=== PATIENT | female | born 1975 | race Caucasian/White ===

== ENCOUNTER 2017-09-14 20:29 | Emergency (ER) | payer BC ==
[2017-09-14 20:58] VITALS: RESP 12; TEMP 98.2; O2SAT 100
[2017-09-14] MEDS ORDERED: IPRATROPIUM/ALBUTEROL 3 ML DEYVIAL IH ONE (21:28)
[2017-09-14 21:29] LABS: PLATELET COUNT 378 10^3/uL (150-400)
[2017-09-14 22:06] VITALS: BP 110/65; PULSE 46
--- NOTE | 2017-09-14 22:06 | EDPHY ---
H & P Time Seen by Provider: 09/14/17 20:51 HPI/ROS: This patient reports itching eyes, burning itching to her mucosal membranes, a feeling of mucus and tightness in her throat and a productive cough over the past week since moving into a rental home in the area having come from [place]. She noticed a correlation between the severity of her symptoms and time spent and a new home with prominent symptoms 1st night that she was there minute during the day while at work the symptoms diminish but again start worsening while she has a home peaking out in the morning prior to going to work. Concerned about potential mold exposure she had home inspection which did reveal some mold in the home. She got a hotel over the past 2 days with improvement in her symptoms and came in for evaluation of her lingering cough productive of sputum. ROS: No high fevers or chills. She does report some lethargy and fatigue which is unusual for her. No other constitutional symptoms. HEENT: Mild nasal congestion is more prominent when she is at home. None currently. She denies any significant sore throat. No ear pain. Pulmonary: No pleuritic pain. No respiratory distress. No hemoptysis. Cardiovascular: She denies any significant lightheadedness. No chest pain. GI: No acute symptoms. : No complaints integumentary: Again burning to her mucosal membranes to her mouth and lips but no other symptoms and no rash. 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 Otherwise healthy Smoking Status: Never smoked Physical Exam: Vital signs are normal General Appearance: Pleasant 41-year-old female Alert, no distress. Eyes: Pupils equal and round no pallor or injection. ENT, Mouth: Mucous membranes moist. No angioedema is appreciated. No stridor. No significant posterior pharyngeal erythema. Ears: Clear bilaterally Respiratory: Clear to auscultation with exception of a faint wheeze only when she coughs. No rales or rhonchi. Cardiovascular: Regular rate and rhythm. No murmur gallop or rub Gastrointestinal: Abdomen is soft and nontender, no masses, bowel sounds normal. Neurological: GCS of 15 Skin: Warm and dry, no rashes. Musculoskeletal: Neck is supple nontender. Extremities are symmetrical, full range of motion. Psychiatric: Mood and affect are normal DIFFERENTIAL DIAGNOSIS: After history and physical exam differential diagnosis was considered for potential symptoms from mold exposure, environmental allergies, viral URI Constitutional: Initial Vital Signs Temperature (C) 36.8 C 09/14/17 20:52 Heart Rate 54 L 09/14/17 20:52 Respiratory Rate 12 09/14/17 20:52 Blood Pressure 119/90 H 09/14/17 20:52 O2 Sat (%) 100 09/14/17 20:52 O2 Delivery Mode Room Air Allergies/Adverse Reactions: No Known Allergies Allergy (Unverified 09/14/17 20:51) Home Medications: Medication Instructions Recorded Albuterol Hfa Anes Only [Proair 2 puffs IH Q4 PRN #1 mdi 09/14/17 Hfa Icu (*)] Control Pill 09/14/17 Fluticasone Hfa 220 Mcg [Flovent 2 puffs IH DAILY #1 mdi 09/14/17 220 MCG Hfa MDI (*)] MDM/Departure - MDM Medications Given: Discontinued Medications Albuterol/Ipratropium (Duoneb) 3 ml IH EDNOW ONE Stop: 09/14/17 21:29 Last Admin: 09/14/17 21:52 Dose: 3 ml ED Course/Re-evaluation: Peak flows checked and is mildly low at 420s with predicted 469 After DuoNeb patient had some improvement to 450. Blood draw with CBC revealed normal total white count but prominence of lymphocytes in basophils. Discussion: Patient with symptoms that may be attributable to mold exposure. No clinical evidence of suggest lower respiratory infection, sepsis, anaphylaxis. She may have a mild element of reactive airway disease given some improvement with DuoNeb Will recommend that she stay away from the home for the now and use the albuterol inhaler plus Flovent steroid inhaler for improvement while documenting or peak flows. Recommended follow up primary care physician. She will return for any significant worsening despite the treatment plan. - Depart Disposition: Home, Routine, Self-Care Clinical Impression: Cough, Mold exposure Condition: Good Additional Instructions: Diagnosis: 1. Cough 2. Exposure to mold Plan: Consider humidifier Albuterol inhaler with spacer for cough, wheeze or shortness of breath Consider Flovent steroid inhaler to diminish mucous. Follow up with primary care physician-number provided Return for any significant worsening despite treatment plan Prescriptions: Albuterol Hfa Anes Only [Proair Hfa Icu (*)] 2 puffs IH Q4 PRN #1 mdi PRN Reason: Wheezing Fluticasone Hfa 220 Mcg [Flovent 220 MCG Hfa MDI (*)] 2 puffs IH DAILY #1 mdi Referrals: NONE *PRIMARY CARE P,. [Primary Care Provider] - As per Instructions Janett Lainez MD [Medical Doctor] - As per Instructions
== END 2017-09-14 22:24 | disposition home or self-care (01) ==
LOC: CED 20:29
DX: R05 Cough (principal); Z77.120 Contact with and (suspected) exposure to mold (toxic)
CPT/HCPCS: 85025-PO

== ENCOUNTER 2017-10-26 09:47 | Emergency (ER) | payer BC ==
[2017-10-26] MEDS ORDERED: NS 1,000 ML IV ONE (10:04)
--- NOTE | 2017-10-26 10:44 | EDPHY ---
H & P Stated Complaint: Dx with Flu B on - cont s/s is worried she is not geting better Time Seen by Provider: 10/26/17 10:04 HPI/ROS: This patient presents with complaints of fatigue on ongoing cough with recent diagnosis of influenza B on 10/22/2017. She noticed onset of symptoms that day with fevers, lightheadedness, cough and nasal congestion. She had a rapid flu swab at the urgent care positive for flu B at that time was started on Tamiflu. She reports compliance with Tamiflu and completed that course today. She reports significant ongoing fatigue and this morning lightheadedness when she was trying to prepare herself to go to work. She also reports some ongoing subjective lower grade fevers. She reports the frequency intensity of her cough is improved but does persist. She had no albuterol inhaler left from a prior bronchitis visit that she used with partial relief of her coughing and sense of dyspnea last night. Due to her ongoing symptoms and feeling of lightheadedness she came in for evaluation. She is concerned that she may have dehydration attributable to anorexia and nausea. She has had minimal food intake for the past 4 days but reports ability to tolerate some fluids. ROS: Constitutional: As per HPI HEENT: She reports no sore throat at this point. No ear pain. No sinus pain. No other complaints Pulmonary: Cough occasionally productive of sputum. No hemoptysis. No respiratory distress. No pleuritic pain. Cardiovascular: Lightheadedness. No chest pain. No heart palpitations. No lower extremity swelling. GI: As per HPI. No abdominal pain. No vomiting. Her ostomy output from her ileostomy is usual for her. : No urinary symptoms. Her last menstrual period was normal timing-q.3 months on OCPs Integumentary: No skin rash Neuro: No headache. No focal complaints. 10 point ROS is otherwise negative. 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 She moved since her last visit when she was living at home with mold contamination. She reports that her respiratory symptoms had resolved prior to the onset of her influenza episode. - Physical Exam Exam: Vital signs are normal General Appearance: Alert, no distress. Eyes: Pupils equal and round no pallor or injection. ENT, Mouth: Mucous membranes dry. Respiratory: Mild wheezing or rhonchi. No rales. Cardiovascular: Regular rate and rhythm. No murmur gallop or rub. No peripheral edema. Gastrointestinal: Abdomen is soft and nontender, no masses, bowel sounds normal. Ostomy site is intact. Neurological: GCS 15. Skin: Warm and dry, no rashes. Musculoskeletal: Neck is supple nontender. Extremities are symmetrical, full range of motion. Psychiatric: Mood and affect are normal DIFFERENTIAL DIAGNOSIS: After history and physical exam differential diagnosis was considered for dehydration, metabolic disturbance, anemia, lingering influenza symptoms with viral bronchitis. Doubt pneumonia given lack of fever currently and lack of rales. Constitutional: Initial Vital Signs Temperature (C) 37 C 10/26/17 09:59 Heart Rate 69 10/26/17 09:59 Respiratory Rate 18 10/26/17 09:59 Blood Pressure 103/72 10/26/17 09:59 O2 Sat (%) 96 10/26/17 09:59 O2 Delivery Mode Room Air Allergies/Adverse Reactions: No Known Allergies Allergy (Unverified 09/14/17 20:51) Home Medications: Medication Instructions Recorded Control Pill 09/14/17 Albuterol Hfa Anes Only [Proair 2 puffs IH Q4 PRN #1 mdi 10/26/17 Hfa Icu (*)] Medical Decision Making ED Course/Re-evaluation: IV normal saline bolus Studies: CBC is normal Basic metabolic panel normal IV 1 L normal saline bolus. Patient took a nap. She awakened she felt improved. She declined Zofran for nausea or any analgesics. She was reassured by her normal lab studies today. I counseled her regarding healing from influenza B. Clinically she has findings consistent with mild viral bronchitis consistent with her resolving influenza B but finding no evidence of lower respiratory infection, I held off on radiographic studies. Patient understands need to return should she developed shortness of breath despite albuterol inhaler, pleuritic pain, fevers or other concerns. - Data Points Laboratory Results: Laboratory Results 10/26/17 10:41 10/26/17 10:41 10/26/17 10/26/17 10:41 10:41 WBC 5.18 10^3/uL 10^3/uL (3.80-9.50) RBC 4.43 10^6/uL 10^6/uL (4.18-5.33) Hgb 13.8 g/dL g/dL (12.6-16.3) Hct 40.4 % % (38.0-47.0) MCV 91.2 fL fL (81.5-99.8) MCH 31.2 pg pg (27.9-34.1) MCHC 34.2 g/dL g/dL (32.4-36.7) RDW 12.5 % % (11.5-15.2) Plt Count 291 10^3/uL 10^3/uL (150-400) MPV 10.0 fL fL (8.7-11.7) Neut % (Auto) 62.5 % % (39.3-74.2) Lymph % (Auto) 28.2 % % (15.0-45.0) Dewey % (Auto) 7.9 % % (4.5-13.0) Eos % (Auto) 0.6 % % (0.6-7.6) Baso % (Auto) 0.4 % % (0.3-1.7) Nucleat RBC Rel Count 0.0 % % (0.0-0.2) Absolute Neuts (auto) 3.24 10^3/uL 10^3/uL (1.70-6.50) Absolute Lymphs (auto) 1.46 10^3/uL 10^3/uL (1.00-3.00) Absolute Monos (auto) 0.41 10^3/uL 10^3/uL (0.30-0.80) Absolute Eos (auto) 0.03 10^3/uL 10^3/uL (0.03-0.40) Absolute Basos (auto) 0.02 10^3/uL 10^3/uL (0.02-0.10) Absolute Nucleated RBC 0.00 10^3/uL 10^3/uL (0-0.01) Immature Gran % 0.4 % % (0.0-1.1) Immature Gran # 0.02 10^3/uL 10^3/uL (0.00-0.10) Sodium 136 mEq/L mEq/L (135-145) Potassium 4.1 mEq/L mEq/L (3.5-5.2) Chloride 101 mEq/L mEq/L (97-110) Carbon Dioxide 24 mEq/l mEq/l (22-31) Anion Gap 11 mEq/L mEq/L (8-16) BUN 3 mg/dL L mg/dL (7-23) Creatinine 0.7 mg/dL mg/dL (0.6-1.0) Estimated GFR > 60 Glucose 86 mg/dL mg/dL (70-100) Calcium 8.9 mg/dL mg/dL (8.5-10.4) Medications Given: Discontinued Medications Sodium Chloride (Ns) 1,000 mls @ 0 mls/hr IV EDNOW ONE; Wide Open PRN Reason: Protocol Stop: 10/26/17 10:05 Last Admin: 10/26/17 10:42 Dose: 1,000 mls Departure - Departure Disposition: Home, Routine, Self-Care Clinical Impression: Influenza B, Nausea, Dehydration Condition: Good Instructions: Influenza Virus Vaccine (By injection), Influenza (ED) Additional Instructions: Diagnosis: Influenza B 2. Nausea 3. Dehydration Plan: Light diet until you feel improved Drink plenty fluids Humidifier Albuterol inhaler for cough, wheeze or shortness of breath Return for any significant worsening despite the treatment plan. Referrals: NONE *PRIMARY CARE P,. [Primary Care Provider] - As per Instructions Prescriptions: Albuterol Hfa Anes Only [Proair Hfa Icu (*)] 2 puffs IH Q4 PRN #1 mdi PRN Reason: Wheezing
[2017-10-26 11:09] LABS: PLATELET COUNT 291 10^3/uL (150-400)
[2017-10-26 11:43] VITALS: BP 110/62
== END 2017-10-26 11:38 | disposition home or self-care (01) ==
LOC: CED 09:47
DX: J10.1 Influenza due to other identified influenza virus with other respiratory manifestations (principal); E86.9 Volume depletion, unspecified
CPT/HCPCS: 80048-PO; 85025-PO; 96374